=== PATIENT | female | born 1980 | race Asian ===

== ENCOUNTER 2019-06-27 17:03 | Emergency (ER) | payer MEDICAID ==
[2019-06-27 17:13] VITALS: BP 115/73
--- NOTE | 2019-06-27 17:36 | ED Physician Documentation ---
History of Present Illness - Stated complaint Stated Complaint: LT EAR INJURY - Chief complaint Chief Complaint: Trauma Hd/Nk - History obtained from History obtained from: Patient - History of Present Illness Timing: Today, How many hours ago (1) Pain level max: 6 Pain level now: 4 - Additonal information Additional information: L ear caught in car door. She states she sustained a laceration to the posterior aspect of the left ear. No loss of consciousness. No headache. No vomiting. Worse with movement and better with rest. Tetanus is up-to-date Review of Systems Constitutional: denies: Fever GI: denies: Vomiting : denies: Now EGA Neurologic: denies: Seizure, LOC PD PAST MEDICAL HISTORY - Past Medical History Past Medical History: No - Past Surgical History Past Surgical History: No - Allergies Allergies/Adverse Reactions: Allergies Allergy/AdvReac Type Severity Reaction Status Date / Time No Known Drug Allergies Allergy Verified 06/27/19 17:09 - Family History Family history: reports: Non contributory - Immunizations Immunizations: TDAP current <10years PD ED PE NORMAL - Vitals Vital signs reviewed: Yes - General General: Alert and oriented X 3, No acute distress, Well developed/nourished - HEENT HEENT: PERRL, Moist mucous membranes, Pharynx benign, Other (L ear - Posterior aspect of the ear, 2 cm linear laceration. Subcutaneous. Not into cartilage. Not through and through. Neurovascularly intact) - Neck Neck: Supple, no meningeal sign - Derm Derm: Warm and dry - Neuro Neuro: Alert and oriented X 3 - Psych Psych: Normal mood, Normal affect Results - Vitals Vitals: Vital Signs - 24 hr 06/27/19 17:09 Temperature 37 C Heart Rate 75 Respiratory 16 Rate Blood Pressure 115/73 O2 Saturation 100 Oxygen O2 Source Room air Procedures - Laceration (location) L ear Length in cm: 1.5 Wound type: Linear, Into subcut fat, Clean Neurovascular status: Sensory intact, Motor intact, Vascular intact Wound Preparation: Irrigated copiously NS Skin layer closure: Dermabond, Steri strips Other: Patient tolerated well, No complications, Neurovascular intact, Tetanus UTD Complexity: Simple PD MEDICAL DECISION MAKING - ED course Complexity details: considered differential, d/w patient ED course: Patient with a linear cut to the posterior aspect of the ear. Closed with Steri-Strips and Dermabond. Tolerated well. Tetanus is up-to-date. Cartilage is not involved. Warnings of infection and instructions on wound care given at bedside. Also counseled on how to minimize scarring. Patient counseled regarding signs and symptoms for which I believe and urgent re-evaluation would be necessary. Patient with good understanding of and agreement to plan and is comfortable going home at this time This document was made in part using voice recognition software. While efforts are made to proofread this document, sound alike and grammatical errors may occur. Departure - Departure Disposition: 01 Home, Self Care Clinical Impression: Laceration of ear Qualifiers: Encounter type: initial encounter Laterality: left Qualified Code(s): S01.312A - Laceration without foreign body of left ear, initial encounter Condition: Good Instructions: ED Laceration Facial Skin Glue Follow-Up: Ciara Arthur ARNP, METHODS SPECIALIST ENGINEER-C [Primary Care Provider] - Within 1 week (for wound check) Comments: Return if you worsen. Do not apply any ointment as this will dissolve the glue. The glue will fall off on its own.
== END 2019-06-27 17:55 | disposition home or self-care (01) ==
LOC: ED 17:03
DX: S01.312A Laceration without foreign body of left ear, initial encounter (principal); W23.0XXA Caught, crushed, jammed, or pinched between moving objects, initial encounter
CPT/HCPCS: 12011; 99282

== ENCOUNTER 2019-07-10 10:16 | Emergency (ER) | payer MEDICAID ==
[2019-07-10 11:02] LABS: HCG UR QUAL NEGATIVE
--- NOTE | 2019-07-10 12:11 | ED Physician Documentation ---
History of Present Illness - Stated complaint Stated Complaint: FEVER/BACK PX - Chief complaint Chief Complaint: Fever - History obtained from History obtained from: Patient - History of Present Illness Timing: Other (38-year-old otherwise healthy woman albeit with history of congenital hepatitis B presents with 4 days of illness consistent with body aches, fever, mild cough, runny nose. She has chronic right upper quadrant pain radiating to the back which is a little worse with this illness. Eating okay though. No sick contacts.) Review of Systems Constitutional: reports: Fever, Chills, Myalgias Nose: reports: Rhinorrhea / runny nose Throat: denies: Sore throat Cardiac: denies: Chest pain / pressure, Palpitations Respiratory: denies: Dyspnea PD PAST MEDICAL HISTORY - Past Surgical History Past Surgical History: No - Present Medications Home Medications: Ambulatory Orders Medication Instructions Recorded Confirmed Ibuprofen [Motrin] 800 mg PO Q8H PRN #30 tablet 07/10/19 - Allergies Allergies/Adverse Reactions: Allergies Allergy/AdvReac Type Severity Reaction Status Date / Time No Known Drug Allergies Allergy Verified 07/10/19 10:44 - Immunizations Immunizations: TDAP current <10years PD ED PE NORMAL - Vitals Vital signs reviewed: Yes - General General: Alert and oriented X 3, No acute distress - HEENT HEENT: PERRL (Anicteric), Pharynx benign - Neck Neck: Supple, no meningeal sign, No bony TTP - Cardiac Cardiac: RRR, No murmur - Respiratory Respiratory: No respiratory distress, Clear bilaterally - Abdomen Abdomen: Non tender - Derm Derm: Normal color, Warm and dry - Neuro Neuro: Alert and oriented X 3, Normal speech Results - Vitals Vitals: Vital Signs - 24 hr 07/10/19 10:41 Temperature 37 C Heart Rate 79 Respiratory 17 Rate Blood Pressure 105/54 L O2 Saturation 100 Oxygen O2 Source Room air - Labs Labs: Laboratory Tests 07/10/19 07/10/19 10:47 10:55 Ur Specific [place] 1.015 Urine HCG, Qual NEGATIVE Influenza A (Rapid) POSITIVE H Influenza B (Rapid) Negative PD MEDICAL DECISION MAKING - ED course ED course: She is not a candidate for Tamiflu given the time course of illness which has been 4 days. Conservative care was advised. Departure - Departure Disposition: 01 Home, Self Care Clinical Impression: Influenza A Condition: Good Record reviewed to determine appropriate education?: Yes Instructions: ED Flu Prescriptions: Ibuprofen [Motrin] 800 mg PO Q8H PRN #30 tablet PRN Reason: PAIN &/OR FEVER Comments: Return or follow-up with your doctor in 3 to 4 days if not improving. Return if worse. Follow-up with your doctor regardless for recheck.
--- NOTE | 2019-07-10 12:14 | XRAY Report ---
Reason: Chest pain Procedure Date: 07/10/2019 Accession Number: [id number] / [id number] Procedure: XR - Chest 2 View X-Ray CPT Code: 29240 Final Report FULL RESULT: EXAM: CHEST RADIOGRAPHY EXAM DATE: 07/10/2019 11:54 AM. CLINICAL HISTORY: Chest pain and cough for 4 days. COMPARISON: None. TECHNIQUE: 2 views. FINDINGS: Lungs/Pleura: No focal opacities evident. Small bilateral pleural effusions. No pneumothorax. Normal volumes. Mediastinum: Heart and mediastinal contours are unremarkable. Other: None. IMPRESSION: 1. Small bilateral pleural effusions. 2. Otherwise, no radiographic evidence of acute cardiopulmonary disease. RADIA
[2019-07-10 12:16] VITALS: BP 112/66
== END 2019-07-10 12:18 | disposition home or self-care (01) ==
LOC: ED 10:16
DX: J11.1 Influenza due to unidentified influenza virus with other respiratory manifestations (principal); J91.8 Pleural effusion in other conditions classified elsewhere
CPT/HCPCS: 71046; 81025; 87275; 87276; 99282; 99284

== ENCOUNTER 2020-01-22 14:51 | Outpatient (CLI) | payer MEDICAID | END 2020-01-22 23:59 | disposition home or self-care (01) | LOC: LAB.R 14:51 | PROVIDERS: ATTEND Physician Assistant Medical | DX: N39.0 Urinary tract infection, site not specified (principal) | CPT/HCPCS: 87077; 87086; 87181 ==

== ENCOUNTER 2020-02-04 08:00 | Outpatient (CLI) | payer MEDICAID ==
[2020-02-04 20:44] LABS: ALBUMIN 4.2 g/dL (3.2-5.5); ALBUMIN/GLOBULIN RATIO 1.2 (1.0-2.2); BILIRUBIN,TOTAL 0.9 mg/dL (0.2-1.0); CALCIUM 9.1 mg/dL (8.5-10.3); CREATININE 0.5 mg/dL (0.4-1.0); TOTAL PROTEIN 7.8 g/dL (6.7-8.2)
[2020-02-04 20:56] LABS: RHEUMATOID FACTOR NEGATIVE (Negative)
[2020-02-06 16:28] LABS: HEPATITIS B SURFACE ANTIGEN REACTIVE (NON-REACTIVE)
== END 2020-02-04 23:59 | disposition home or self-care (01) ==
LOC: LAB.S 08:00
PROVIDERS: ATTEND Physician Assistant
DX: B19.10 Unspecified viral hepatitis B without hepatic coma (principal); M19.90 Unspecified osteoarthritis, unspecified site; M25.561 Pain in right knee; M25.562 Pain in left knee
CPT/HCPCS: 36415; 80053; 86038; 86200; 86317; 86430; 86704; 87340

== ENCOUNTER 2020-05-25 16:54 | Outpatient (CLI) | payer MEDICAID | END 2020-05-25 23:59 | disposition critical access hospital (66) | LOC: EMS 16:54 | PROVIDERS: ATTEND Surgery | DX: R42 Dizziness and giddiness (principal) | CPT/HCPCS: A0425; A0429; A0999 ==

== ENCOUNTER 2020-05-25 17:34 | Emergency (ER) | payer MEDICAID ==
[2020-05-25] MEDS ORDERED: SODIUM CHLORIDE 0.9% 1,000 ML IV STA (18:12)
--- NOTE | 2020-05-25 19:09 | CT Report ---
PROCEDURE: HEAD WO INDICATIONS: ataxia TECHNIQUE: Noncontrast 4.5 mm thick angled axial sections acquired from the foramen magnum to the vertex. For r adiation dose reduction, the following was used: automated exposure control, adjustment of mA and/or kV according to patient size. COMPARISON: None. FINDINGS: Image quality: Excellent. CSF spaces: Basal cisterns are patent. No extra-axial fluid collections. Ventricles are normal in size and shape. Brain: No midline shift. No intracranial masses or hemorrhage. Rain-white matter interface is norm al. Skull and face: Calvarium and visualized facial bones are intact, without suspicious lesions. Sinuses: Visualized sinuses and mastoids are clear. IMPRESSION: No CT evidence of acute intracranial pathology. Reviewed by: Jose Jovel MD on 05/25/2020 6:07 PM RUST Approved by: Jose Jovel MD on 05/25/2020 6:07 PM RUST Station ID: [id number]
[2020-05-25 19:22] LABS: MUDS CUTOFF CONCENTRATIONS CUTOFF CONC BELOW:
--- NOTE | 2020-05-25 19:22 | ED Physician Documentation ---
History of Present Illness - Stated complaint Stated Complaint: DIZZY - Chief complaint Chief Complaint: Neuro - History obtained from History obtained from: Patient - Additonal information Additional information: Patient comes emergency department complaining of suddenly feeling dizzy and like she is "drunk". She states that symptoms started around 1600 after she ate a store-bought brownie from her work break room. She states she had been feeling fine throughout the day and had not taken any medications or any other substances. She states that she began to feel off balance and heavy headed. No nausea or vomiting. No chest pain or shortness of breath. She states that now she just feels very tired and still feels as though she is "drunk". Patient states nothing like this has ever happened to her before. She does note that when she moves her head in certain direction she gets a feeling of vertigo. No recent illness. No focal weakness. She does note that she has had a cold feeling in the back of her neck and a numb tingly feeling feeling in both her hands and her feet. Review of Systems Ten Systems: 10 systems reviewed and negative Constitutional: reports: Reviewed and negative Eyes: reports: Reviewed and negative Ears: reports: Reviewed and negative Nose: reports: Reviewed and negative Throat: reports: Reviewed and negative Cardiac: reports: Reviewed and negative Respiratory: reports: Reviewed and negative GI: reports: Reviewed and negative : reports: Reviewed and negative Skin: reports: Reviewed and negative Musculoskeletal: reports: Reviewed and negative Neurologic: reports: Numbness, Other (Dizziness). 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 - Present Medications Home Medications: Ambulatory Orders Medication Instructions Recorded Confirmed Ibuprofen [Motrin] 800 mg PO Q8H PRN #30 tablet 07/10/19 05/25/20 - Allergies Allergies/Adverse Reactions: Allergies Allergy/AdvReac Type Severity Reaction Status Date / Time No Known Drug Allergies Allergy Verified 05/25/20 17:55 - Social History Does the pt smoke?: No Smoking Status: Never smoker Does the pt drink ETOH?: Yes Does the pt have substance abuse?: No - Immunizations Immunizations: TDAP current <10years PD ED PE NORMAL - Vitals Vital signs reviewed: Yes - General General: Alert and oriented X 3, No acute distress - HEENT HEENT: Atraumatic, PERRL, EOMI, Moist mucous membranes - Neck Neck: Supple, no meningeal sign - Cardiac Cardiac: RRR, No murmur - Respiratory Respiratory: No respiratory distress, Clear bilaterally - Abdomen Abdomen: Soft, Non tender, Non distended - Derm Derm: Normal color, Warm and dry, No rash - Extremities Extremities: No deformity, No edema, No calf tenderness / cord - Neuro Neuro: Alert and oriented X 3, cigar machine feeder 2-12 intact, No motor deficit, No sensory deficit, Normal speech - Psych Psych: Normal mood, Normal affect Results - Vitals Vitals: Vital Signs - 24 hr 05/25/20 05/25/20 05/25/20 17:55 18:05 18:33 Temperature 37.1 C 37 C Heart Rate 71 74 80 Respiratory 18 17 17 Rate Blood Pressure 107/59 L 108/65 110/62 O2 Saturation 98 97 98 Oxygen O2 Source Room air PD MEDICAL DECISION MAKING - ED course Complexity details: considered differential, d/w patient ED course: The patient was started on 1 L bolus point and normal saline in the emergency department. She was fairly well-appearing upon arrival, but it was unclear exactly what had been the cause of her symptoms, and as such, she was worked up with labs, CT scan of the head, and urine drug screen. The results are pending at this time with exception of CT of the head, which was found to be unremarkable. Patient has been sent out to Dr. Lopez pending the results of work-up and final disposition.
[2020-05-25 19:26] LABS: BILIRUBIN,URINE NEGATIVE (NEGATIVE); GLUCOSE, URINE (UA) NEGATIVE (NEGATIVE); KETONES,URINE (UA) NEGATIVE (NEGATIVE); LEUKOCYTE ESTERASE, URINE TRACE (NEGATIVE); NITRITE,URINE NEGATIVE (NEGATIVE); OCCULT BLOOD,URINE NEGATIVE (NEGATIVE); PH,URINE 6.5 PH (5.0-7.5); PROTEIN,URINE NEGATIVE (NEGATIVE); UROBILINOGEN,URINE 0.2 (NORMAL) E.U./dL (NORMAL)
[2020-05-25 19:31] LABS: CLARITY,URINE CLEAR (CLEAR)
[2020-05-25 19:41] LABS: AMPHETAMINE SCREEN,URINE NEGATIVE (NEGATIVE); BENZODIAZEPINES SCREEN, URINE NEGATIVE (NEGATIVE); COCAINE SCREEN URINE NEGATIVE (NEGATIVE); METHADONE SCREEN, URINE NEGATIVE (NEGATIVE); METHAMPHETAMINES SCREEN, URINE NEGATIVE (NEGATIVE); OPIATE SCREEN, URINE NEGATIVE (NEGATIVE); OXYCODONE SCREEN, URINE NEGATIVE (NEGATIVE); PROPOXYPHENE SCREEN, URINE NEGATIVE (NEGATIVE); TRICYCLIC ANTIDEPRESSANT,URINE NEGATIVE (NEGATIVE)
[2020-05-25 19:51] LABS: BACTERIA,URINE Few /HPF (None Seen); EPITHELIAL CELLS,UR RARE Transitional /HPF (<= Few); RBC,URINE 0-5 /HPF (0-5); SQUAMOUS EPITHELIAL CELL,UR MOD Squamous (<= Few)
[2020-05-25 20:40] LABS: BASOPHILS % (AUTO) 0.3 %; EOSINOPHILS # (AUTO) 0.1 10^3/uL (0.0-0.7); EOSINOPHILS % (AUTO) 1.4 %; LYMPHOCYTES # (AUTO) 1.4 10^3/uL (1.5-3.5); LYMPHOCYTES % (AUTO) 21.7 %; MEAN CORPUSCULAR HEMOGLOBIN 30.3 pg (27.0-31.0); MEAN CORPUSCULAR HGB CONC 33.9 g/dL (32.0-36.0); MEAN CORPUSCULAR VOLUME 89.4 fL (81.0-99.0); MEAN PLATELET VOLUME 9.2 fL (7.9-10.8); MONOCYTES # (AUTO) 0.3 10^3/uL (0.0-1.0); MONOCYTES % (AUTO) 4.3 %; NEUTROPHILS # (AUTO) 4.6 10^3/uL (1.5-6.6); PLT - PLATELET COUNT 221 10^3/uL (130-450); RED BLOOD COUNT 3.96 10^6/uL (4.20-5.40); RED CELL DISTRIBUTION WIDTH 12.4 % (12.0-15.0); WHITE BLOOD COUNT 6.3 x10^3/uL (4.8-10.8)
[2020-05-25 20:52] LABS: ALBUMIN 3.6 g/dL (3.2-5.5); ALBUMIN/GLOBULIN RATIO 1.2 (1.0-2.2); ALKALINE PHOSPHATASE 44 IU/L (42-121); ALT ALANINE AMINOTRANSFERASE 28 IU/L (10-60); AST ASPARTATE AMINOTRANSFERASE 21 IU/L (10-42); BILIRUBIN,TOTAL 0.6 mg/dL (0.2-1.0); BUN - BLOOD UREA NITROGEN 14 mg/dL (6-20); CALCIUM 8.2 mg/dL (8.5-10.3); CARBON DIOXIDE - CO2 22 mmol/L (21-32); CHLORIDE 108 mmol/L (101-111); CREATININE 0.5 mg/dL (0.4-1.0); GLUCOSE 97 mg/dL (70-100); LIPASE 59 U/L (22-51); SODIUM 137 mmol/L (135-145); TOTAL PROTEIN 6.6 g/dL (6.7-8.2)
--- NOTE | 2020-05-25 21:33 | ED Physician Documentation ---
ED Addendum - Addendum Addendum: 05/25/20 21:31 States she is slowly feeling better but still feels "drunk". Her tests previously ordered by the outgoing physician where showing normal blood tests and head CT scan. Her urine was positive for cannabinoids. It is apparent that the brownies she had eaten earlier was likely made with cannabis. Her symptoms would correspond with that. I would anticipate improvement overnight. This point she can be discharged home and rest with her there. They are both comfortable with that plan. Diagnosis acute altered mental status Cannabis intoxication Discharge disposition the patient discharged home in stable condition
[2020-05-25 21:43] VITALS: BP 115/76
== END 2020-05-25 21:49 | disposition home or self-care (01) ==
LOC: EDUNIT# → ED 17:34
DX: F12.929 Cannabis use, unspecified with intoxication, unspecified (principal); R41.82 Altered mental status, unspecified; Y92.89 Other specified places as the place of occurrence of the external cause
CPT/HCPCS: 36415; 70450; 80053; 80306; 80320; 81001; 81003; 83690; 85025; 87086; 96360; 96361; 99284

== ENCOUNTER 2021-12-01 07:00 | Outpatient (CLI) | payer MEDICAID ==
--- NOTE | 2021-12-01 19:20 | XRAY Report ---
PROCEDURE: Ribs 2 View RT INDICATIONS: RIGHT SIDED RIB PAIN TECHNIQUE: 3 views of the right ribs were acquired. COMPARISON: CXR 07/10/2019. FINDINGS: Surgical changes and devices: None. Bones and chest wall: No fractures or dislocations. No suspicious bony lesions. Overlying soft tis sues appear unremarkable. Lungs and pleura: The visualized lung appears clear. No pleural effusions or pneumothorax are visib le. IMPRESSION: No displaced right-sided rib fracture. Reviewed by: Cornelius Young MD on 12/01/2021 7:18 PM PDT Approved by: Cornelius Young MD on 12/01/2021 7:18 PM PDT Station ID: [id number]
[2021-12-01 19:56] LABS: BASOPHILS % (AUTO) 0.4 %; EOSINOPHILS # (AUTO) 0.1 10^3/uL (0.0-0.7); EOSINOPHILS % (AUTO) 1.7 %; HCT - HEMATOCRIT 37.2 % (37.0-47.0); HGB - HEMOGLOBIN 12.6 g/dL (12.0-16.0); LYMPHOCYTES # (AUTO) 2.1 10^3/uL (1.5-3.5); LYMPHOCYTES % (AUTO) 29.6 %; MEAN CORPUSCULAR HEMOGLOBIN 29.9 pg (27.0-31.0); MEAN CORPUSCULAR HGB CONC 33.9 g/dL (32.0-36.0); MEAN CORPUSCULAR VOLUME 88.2 fL (81.0-99.0); MEAN PLATELET VOLUME 9.8 fL (7.9-10.8); MONOCYTES # (AUTO) 0.4 10^3/uL (0.0-1.0); MONOCYTES % (AUTO) 5.3 %; NEUTROPHILS # (AUTO) 4.5 10^3/uL (1.5-6.6); NEUTROPHILS % (AUTO) 62.6 %; PLT - PLATELET COUNT 243 10^3/uL (130-450); RED BLOOD COUNT 4.22 10^6/uL (4.20-5.40); RED CELL DISTRIBUTION WIDTH 12.6 % (12.0-15.0); WHITE BLOOD COUNT 7.2 x10^3/uL (4.8-10.8)
[2021-12-01 20:19] LABS: ALBUMIN 4.2 g/dL (3.2-5.5); ALBUMIN/GLOBULIN RATIO 1.2 (1.0-2.2); BILIRUBIN,TOTAL 0.5 mg/dL (0.2-1.0); CALCIUM 9.4 mg/dL (8.5-10.3); CREATININE 0.6 mg/dL (0.4-1.0); POTASSIUM 3.4 mmol/L (3.5-5.0); TOTAL PROTEIN 7.8 g/dL (6.7-8.2)
== END 2021-12-01 23:59 | disposition home or self-care (01) ==
LOC: DI.S 07:00
PROVIDERS: ATTEND Physician Assistant
DX: R07.81 Pleurodynia (principal); R10.11 Right upper quadrant pain; B18.1 Chronic viral hepatitis B without delta-agent
CPT/HCPCS: 36415; 80053; 83690; 85025

== ENCOUNTER 2022-01-03 15:12 | Emergency (ER) | payer MEDICAID ==
--- NOTE | 2022-01-03 16:13 | ED Physician Documentation ---
PD HPI BACK PAIN - Stated complaint Stated Complaint: LOW BACK PAIN - Chief complaint Chief Complaint: Back Pain - History obtained from History obtained from: Patient - History of Present Illness Timing - onset: Yesterday Timing - duration: Days (1) Timing - details: Gradual onset, Still present Location: Lower, Right Quality: Pain, Spasm, Aching Associated symptoms: No: Fever, Weakness, Numbness Worsened by: Movement, Palpation Contributing factors: Other (she mowed lawn yesterday with push mower and had onset of low back pain afterward which worsened overnight. Has had RUQ pain intermittently for the past month, worse after eating. However the back pain is new and just started yesterday.). No: Trauma Review of Systems Constitutional: denies: Fever, Chills Nose: denies: Rhinorrhea / runny nose, Congestion Throat: denies: Sore throat Respiratory: denies: Cough GI: reports: Abdominal Pain (RUQ intermittently for the past month, worse with eating.), Nausea. 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 - Present Medications Home Medications: Ambulatory Orders Medication Instructions Recorded Confirmed Aspirin [Aspirin EC] 243 mg PO DAILY 01/03/22 01/03/22 Dicyclomine [Bentyl] 10 mg PO BID PRN #30 cap 01/03/22 HYDROcod/ACETAM 5/325 [[place] 5/325] 1 ea PO Q6H PRN #18 tablet 01/03/22 Naproxen 250 mg PO TID 7 Days #20 tablet 01/03/22 - Allergies Allergies/Adverse Reactions: Allergies Allergy/AdvReac Type Severity Reaction Status Date / Time ivanna Allergy Itching Verified 01/03/22 15:34 - Social History Does the pt smoke?: No Smoking Status: Never smoker Does the pt drink ETOH?: Yes Does the pt have substance abuse?: No - Immunizations Immunizations: TDAP current <10years PD ED PE NORMAL - Vitals Vital signs reviewed: Yes - General General: Alert and oriented X 3, No acute distress, Well developed/nourished - Neck Neck: Supple, no meningeal sign, No adenopathy - Cardiac Cardiac: RRR, No murmur - Respiratory Respiratory: Clear bilaterally - Abdomen Abdomen: Normal bowel sounds, Soft, Non distended, No organomegaly, Other (some tender without guarding in RUQ. No percussion nor rebound tenderness. ) - Back Back: No CVA TTP, No spinal TTP (tender in lower lumbar muscles to the right without deformity. No rash nor sores. ) - Derm Derm: Normal color, Warm and dry - Extremities Extremities: No edema, No calf tenderness / cord - Neuro Neuro: Alert and oriented X 3, No motor deficit, No sensory deficit, Normal speech Results - Vitals Vitals: Oxygen O2 Source Room air - Labs Labs: Laboratory Tests 01/03/22 01/03/22 01/03/22 16:45 16:45 16:53 WBC 5.3 RBC 4.17 L Hgb 12.4 Hct 37.2 MCV 89.2 MCH 29.7 MCHC 33.3 RDW 12.4 Plt Count 205 MPV 9.0 Neut # (Auto) 3.3 Lymph # (Auto) 1.4 L [place] # (Auto) 0.4 Eos # (Auto) 0.1 Baso # (Auto) 0.0 Absolute Nucleated RBC 0.00 Nucleated RBC % 0.0 Sodium 137 Potassium 3.6 Chloride 104 Carbon Dioxide 27 Anion Gap 6.0 BUN 19 Creatinine 0.6 Estimated GFR (MDRD) 111 Glucose 110 H Calcium 8.7 Total Bilirubin 0.4 AST 25 ALT 33 Alkaline Phosphatase 48 Total Protein 7.2 Albumin 3.8 Globulin 3.4 Albumin/Globulin Ratio 1.1 Lipase 44 Urine Color YELLOW Urine Clarity CLEAR Urine pH 6.0 Ur Specific [place] 1.025 Urine Protein NEGATIVE Urine Glucose (UA) NEGATIVE Urine Ketones NEGATIVE Urine Occult Blood TRACE-INTA Urine Nitrite NEGATIVE Urine Bilirubin NEGATIVE Urine Urobilinogen 0.2 (NORMAL) Ur Leukocyte Esterase NEGATIVE Ur Microscopic Review NOT INDICATED Urine Culture Comments NOT INDICATED - Rads (name of study) abd/pelvic CT Radiology: Prelim report reviewed (collapsed gallbladder without other radiologic abnormality. ), See rad report PD MEDICAL DECISION MAKING - ED course Complexity details: considered differential (low back pain new seems muscular from mowing/activity, with worse on movement. RUQ pain sounds gallbladder like. Can get CT abd/pelvic to eval both areas rather than just U/S for upper. Consider vascular or other cause to encompass both. ), d/w patient Departure - Departure Disposition: 01 Home, Self Care Clinical Impression: RUQ abdominal pain Low back pain Qualifiers: Chronicity: acute Back pain laterality: right Sciatica presence: without sciatica Qualified Code(s): M54.50 - Low back pain, unspecified Condition: Stable Record reviewed to determine appropriate education?: Yes Instructions: ED Abdominal Pain Female Non-Specific Abdominal Pain, ED Sprain Strain Lumbar Follow-Up: Ling Waldron ARNP [Primary Care Provider] - Prescriptions: Dicyclomine [Bentyl] 10 mg PO BID PRN #30 cap PRN Reason: Abdominal Pain Naproxen 250 mg PO TID 7 Days #20 tablet HYDROcod/ACETAM 5/325 [[place] 5/325] 1 ea PO Q6H PRN #18 tablet PRN Reason: Pain Comments: Your CT scan does not show any acute problems. I presume your lower back pain is from muscular strain. I would treat it with heat/stretching/massage, and add anti-inflmmatories such as Naproxen three times daily with food. To that add Tylenol every 4-6 hours if needed or Hydrocodone/apap if needed for worse pain. Your upper abdominal pain right side you have been having may related to spasms of the gallbladder (without there being other obvious cause on your CT/tests). We can try dicyclomine antispasmodic twice daily for the next 7-10 days to see if lessens/improves the pain there. Follow up with your primary care. Consideration for a test that looks at over- spasming of the gallbladder (called HIDA scan), that would need to be arranged by your PCP. I transmitted your scripts to [facility]. Discharge Date/Time: 01/03/22 18:46
[2022-01-03] MEDS ORDERED: ACETAMINOPHEN 325 MG TABLET PO STA (16:37)
[2022-01-03] MEDS ORDERED: IBUPROFEN 600 MG TABLET PO STA (16:37)
[2022-01-03 16:50] LABS: BASOPHILS % (AUTO) 0.6 %; EOSINOPHILS # (AUTO) 0.1 10^3/uL (0.0-0.7); EOSINOPHILS % (AUTO) 2.3 %; HCT - HEMATOCRIT 37.2 % (37.0-47.0); HGB - HEMOGLOBIN 12.4 g/dL (12.0-16.0); LYMPHOCYTES # (AUTO) 1.4 10^3/uL (1.5-3.5); MEAN CORPUSCULAR HEMOGLOBIN 29.7 pg (27.0-31.0); MEAN CORPUSCULAR HGB CONC 33.3 g/dL (32.0-36.0); MEAN CORPUSCULAR VOLUME 89.2 fL (81.0-99.0); MONOCYTES # (AUTO) 0.4 10^3/uL (0.0-1.0); NEUTROPHILS # (AUTO) 3.3 10^3/uL (1.5-6.6); NEUTROPHILS % (AUTO) 62.9 %; PLT - PLATELET COUNT 205 10^3/uL (130-450); RED BLOOD COUNT 4.17 10^6/uL (4.20-5.40); RED CELL DISTRIBUTION WIDTH 12.4 % (12.0-15.0); WHITE BLOOD COUNT 5.3 x10^3/uL (4.8-10.8)
[2022-01-03 16:58] LABS: BILIRUBIN,URINE NEGATIVE (NEGATIVE); GLUCOSE, URINE (UA) NEGATIVE (NEGATIVE); KETONES,URINE (UA) NEGATIVE (NEGATIVE); LEUKOCYTE ESTERASE, URINE NEGATIVE (NEGATIVE); NITRITE,URINE NEGATIVE (NEGATIVE); OCCULT BLOOD,URINE TRACE-INTA (NEGATIVE); PROTEIN,URINE NEGATIVE (NEGATIVE); UROBILINOGEN,URINE 0.2 (NORMAL) E.U./dL (NORMAL)
[2022-01-03 17:00] LABS: CLARITY,URINE CLEAR (CLEAR)
[2022-01-03 17:04] LABS: ALBUMIN 3.8 g/dL (3.2-5.5); ALBUMIN/GLOBULIN RATIO 1.1 (1.0-2.2); BILIRUBIN,TOTAL 0.4 mg/dL (0.2-1.0); CALCIUM 8.7 mg/dL (8.5-10.3); CREATININE 0.6 mg/dL (0.4-1.0); POTASSIUM 3.6 mmol/L (3.5-5.0); TOTAL PROTEIN 7.2 g/dL (6.7-8.2)
--- NOTE | 2022-01-03 17:16 | CT Report ---
PROCEDURE: Abdomen/Pelvis WO INDICATIONS: low back/right back pain/RUQ abd TECHNIQUE: Noncontrast 5 mm thick sections acquired from the diaphragms to the symphysis. 5 mm coronal and sagi ttal reformats were then performed. For radiation dose reduction, the following was used: automated exposure control, adjustment of mA and/or kV according to patient size. COMPARISON: None. FINDINGS: Image quality: Excellent. ABDOMEN: Lung bases: Lung bases are clear. Heart size is normal. Solid organs: Liver and spleen are normal in size. Gallbladder is largely collapsed at the time of this study no inflammatory changes can be seen surrounding the gallbladder. Pancreas is normal in co ntours. No adrenal nodules. Kidneys are normal in size, without hydronephrosis or nephrolithiasis. Peritoneum and bowel: Unenhanced bowel loops demonstrate normal wall thickness and caliber. No free fluid or air. Nodes and vessels: No retroperitoneal or mesenteric adenopathy by size criteria. Aorta and inferior vena cava are normal in caliber. Miscellaneous: No ventral hernias. PELVIS: Genitourinary: Bladder wall thickness is normal. The uterus demonstrates an unremarkable appearance for age. No adnexal masses are seen. Miscellaneous: No inguinal hernias or adenopathy. Bones: No suspicious bony lesions. No vertebral body compression fractures. Focal L5-S1 degenerati ve change is seen. Milder degenerative changes are seen elsewhere. IMPRESSION: Collapsed gallbladder, without additional CT abnormality of the right upper quadrant. If it would be helpful for clinical management decision making, please consider a dedicated right upp er quadrant ultrasound for further evaluation. Incidental note is made of: Focal L5-S1 degenerative change Reviewed by: Babatunde Alegria MD on 01/03/2022 4:15 PM AKDT Approved by: Babatunde Alegria MD on 01/03/2022 4:15 PM AKDT Station ID: [id number]
[2022-01-03 18:46] VITALS: BP 118/72
--- OUTSIDE RECORDS SUMMARY | 2022-01-05 16:11 | EXTERNAL MEDICAL SUMMARY RPT | Continuity of Care Document ---
:1980 Author Organization [facility] Address [address] [place] [address] Phone Allergies No information. Encounters No information. Functional Status No information. Immunizations No information. Medications No information. Problems No information. Procedures date description facility +0000 COMPREHENSIVE METABOLIC PANEL [facility] [id number] Lipase Walk[facility] Anc[facility] Services [facility] [id number] CBC W/Diff/Plt Walk-In [facility] & [facility] +0000 COVID19 Testing Walk-In [facility] & [facility] Results/Labs No information. Social History date description facility +0000 Never smoker Walk[facility] [id number] Never smoker [facility] Vital Signs date measurement value units [id number] BMI BMI 26.01 kg/m2 [id number]+0000 BP_diastolic BP_diastolic 79 mm[H g] [id number]+0000 BP_systolic BP_systolic 125 mm[Hg] [id number]+0000 heart_rate heart_rate 84 /min [id number]+0000 height_metric height_metric 162.56 cm [id number]+0000 height_standard height_standard 64 in [id number]+0000 respiration_rate respiration_rate 16 /min [id number]+0000 temperature_metric temperature_metric 36.56 C [id number]+0000 temperature_standard temperature_standard 9 7.8 F [id number]+0000 weight_metric weight_metric 68.49 kg [id number]+0000 weight_standard weight_standard 151 lb
== END 2022-01-03 18:46 | disposition home or self-care (01) ==
LOC: ED 15:12
DX: M54.50 Low back pain, unspecified (principal); R10.11 Right upper quadrant pain
CPT/HCPCS: 36415; 74176; 80053; 81003; 83690; 85025; 99284; A9270; 81001; 87086

== ENCOUNTER 2022-03-28 14:27 | Outpatient (CLI) | payer MEDICAID ==
[2022-03-30 06:09] LABS: HEPATITIS B SURFACE AB QUANT <3.1 mIU/mL (Immunity>9.9)
== END 2022-03-28 14:28 | disposition home or self-care (01) ==
LOC: LAB.S 14:27
PROVIDERS: ATTEND Registered Nurse
DX: B18.1 Chronic viral hepatitis B without delta-agent (principal)
CPT/HCPCS: 36415; 86317; 86704

== ENCOUNTER 2023-01-03 19:07 | Outpatient (CLI) | payer MEDICAID ==
--- NOTE | 2023-01-04 09:46 | Ultrasound Report ---
PROCEDURE: OB First Trimester INDICATIONS: POSITIVE TEST OUTSIDE/PRIOR DATING DATA: Last menstrual period (LMP): 10/30/2022. LMP-based estimated date of delivery (JOSE): 08/06/2023. First dating scan (date and location): Today's exam. Estimated date of delivery (JOSE) from first dating scan: 08/05/2023. The below data below was generated using the ultrasound JOSE of 08/05/2023 TECHNIQUE: Real-time scanning was performed of the fetus and maternal pelvic organs, with image documentation. COMPARISON: None FINDINGS: Single intrauterine present. Embryo: Measures 2.6 cm, 9 weeks 3 days. Heart rate: 169 beats per minutes. Other: Perigestational fluid collection measuring 3.3 x 1.2 x 3.3 cm. Measurement variability in dating: +/- 4 weeks by LMP, +/- 7 days by mean sac diameter (use before 6 weeks gestation if crown-rump length not able to be measured), +/- 5 days by crown-rump length (6-12 weeks gestation). Maternal organs: Ovaries are within normal limits. IMPRESSION: Single living intrauterine at 9 weeks 3 days, JOSE of 08/05/2023. Perigestational fluid collection measuring 3.3 x 1.2 x 3.3 cm. Reviewed by: Moo Burton on 01/04/2023 9:44 AM PDT Approved by: Moo Burton on 01/04/2023 9:44 AM PDT Station ID: [id number]
== END 2023-01-03 19:08 | disposition home or self-care (01) ==
LOC: DI 19:07
PROVIDERS: ATTEND Obstetrics & Gynecology
DX: O09.529 Supervision of elderly multigravida, unspecified trimester (principal); O20.8 Other hemorrhage in early pregnancy; Z3A.09 9 weeks gestation of pregnancy; Z36.89 Encounter for other specified antenatal screening
CPT/HCPCS: 36415; 81001; 85025; 86592; 86762; 86787; 86803; 86850; 86900; 86901; 87086; 87340; 87389

== ENCOUNTER 2023-01-03 19:56 | Outpatient (CLI) | payer MEDICAID ==
[2023-01-03 21:17] LABS: BASOPHILS % (AUTO) 0.3 %; EOSINOPHILS # (AUTO) 0.1 10^3/uL (0.0-0.7); EOSINOPHILS % (AUTO) 1.2 %; HCT - HEMATOCRIT 38.9 % (37.0-47.0); HGB - HEMOGLOBIN 13.1 g/dL (12.0-16.0); LYMPHOCYTES # (AUTO) 1.7 10^3/uL (1.5-3.5); LYMPHOCYTES % (AUTO) 17.9 %; MEAN CORPUSCULAR HEMOGLOBIN 30.3 pg (27.0-31.0); MEAN CORPUSCULAR HGB CONC 33.7 g/dL (32.0-36.0); MEAN CORPUSCULAR VOLUME 89.8 fL (81.0-99.0); MEAN PLATELET VOLUME 9.4 fL (7.9-10.8); MONOCYTES # (AUTO) 0.5 10^3/uL (0.0-1.0); MONOCYTES % (AUTO) 5.6 %; NEUTROPHILS % (AUTO) 74.7 %; PLT - PLATELET COUNT 256 10^3/uL (130-450); RED BLOOD COUNT 4.33 10^6/uL (4.20-5.40); RED CELL DISTRIBUTION WIDTH 12.4 % (12.0-15.0); WHITE BLOOD COUNT 9.4 x10^3/uL (4.8-10.8)
[2023-01-03 21:44] LABS: BILIRUBIN,URINE NEGATIVE (NEGATIVE); GLUCOSE, URINE (UA) NEGATIVE (NEGATIVE); KETONES,URINE (UA) NEGATIVE (NEGATIVE); LEUKOCYTE ESTERASE, URINE NEGATIVE (NEGATIVE); NITRITE,URINE NEGATIVE (NEGATIVE); OCCULT BLOOD,URINE NEGATIVE (NEGATIVE); PROTEIN,URINE NEGATIVE (NEGATIVE); UROBILINOGEN,URINE 0.2 (NORMAL) E.U./dL (NORMAL)
[2023-01-03 21:49] LABS: CLARITY,URINE CLEAR (CLEAR)
[2023-01-03 22:00] LABS: RBC,URINE 0-5 /HPF (0-5); SQUAMOUS EPITHELIAL CELL,UR FEW Squamous (<= Few); WBC,URINE 0-3 /HPF (0-5)
[2023-01-03 22:01] LABS: BACTERIA,URINE Rare /HPF (None Seen)
[2023-01-05 02:08] LABS: HIV SCREEN 4TH GENERATION Non Reactive (Non Reactive)
[2023-01-05 03:10] LABS: HCV AB Non Reactive (Non Reactive)
[2023-01-05 07:10] LABS: HBsAG CONFIRMATION Positive (.); HBsAG SCREEN Confirm. indicated (Negative); RPR Non Reactive (Non Reactive)
[2023-01-05 08:11] LABS: VARICELLA-ZOSTER AB IGG <135 index (Immune >165)
== END 2023-01-03 19:57 | disposition home or self-care (01) ==
LOC: LAB 19:56
PROVIDERS: ATTEND Obstetrics & Gynecology
DX: O09.529 Supervision of elderly multigravida, unspecified trimester (principal); Z36.89 Encounter for other specified antenatal screening
CPT/HCPCS: 36415; 81001; 85025; 86592; 86762; 86787; 86803; 86850; 86900; 86901; 87086; 87340; 87389

== ENCOUNTER 2023-01-25 08:00 | Outpatient (CLI) | payer MEDICAID ==
[2023-01-25 21:40] LABS: CHLAMYDIA TRACHOMATIS DNA NEGATIVE (NEGATIVE); NEISSERIA GONORRHOEAE DNA NEGATIVE (NEGATIVE); TRICHOMONAS VAGINALIS DNA NEGATIVE (NEGATIVE)
== END 2023-01-25 23:58 | disposition home or self-care (01) ==
LOC: LAB.WC 08:00
PROVIDERS: ATTEND Obstetrics & Gynecology
DX: Z11.3 Encounter for screening for infections with a predominantly sexual mode of transmission (principal)
CPT/HCPCS: 87491; 87591; 87661

== ENCOUNTER 2023-01-26 14:21 | Outpatient (CLI) | payer MEDICAID ==
[2023-01-26 16:08] LABS: ALBUMIN 3.2 g/dL (3.2-5.5); ALBUMIN/GLOBULIN RATIO 0.9 (1.0-2.2); BILIRUBIN,TOTAL 0.2 mg/dL (0.2-1.0); CALCIUM 8.6 mg/dL (8.5-10.3); CREATININE 0.5 mg/dL (0.4-1.0); POTASSIUM 3.7 mmol/L (3.5-5.0); TOTAL PROTEIN 6.8 g/dL (6.7-8.2)
[2023-01-27 04:09] LABS: HEPATITIS B SURFACE AB QUANT <3.1 mIU/mL (Immunity>9.9); HEPATITIS BE ANTIGEN Negative (Negative)
[2023-01-29 10:08] LABS: HEPATITIS BE ANTIBODY Positive (Negative)
[2023-01-29 18:07] LABS: HBV IU/ML 30 IU/mL (.); HBV IU/ML LOG10 1.477 (.)
== END 2023-01-26 14:22 | disposition home or self-care (01) ==
LOC: LAB.S 14:21 → LAB 14:22
PROVIDERS: ATTEND Obstetrics & Gynecology
DX: O09.529 Supervision of elderly multigravida, unspecified trimester (principal); B19.10 Unspecified viral hepatitis B without hepatic coma; Z11.3 Encounter for screening for infections with a predominantly sexual mode of transmission
CPT/HCPCS: 36415; 80053; 86317; 86704; 86707; 87350; 87517

== ENCOUNTER 2023-03-14 10:29 | Outpatient (CLI) | payer MEDICAID ==
[2023-03-14 10:57] LABS: HCT - HEMATOCRIT 35.5 % (37.0-47.0); MEAN CORPUSCULAR HEMOGLOBIN 30.7 pg (27.0-31.0); MEAN CORPUSCULAR HGB CONC 33.8 g/dL (32.0-36.0); MEAN CORPUSCULAR VOLUME 90.8 fL (81.0-99.0); MEAN PLATELET VOLUME 8.9 fL (7.9-10.8); RED BLOOD COUNT 3.91 10^6/uL (4.20-5.40); RED CELL DISTRIBUTION WIDTH 12.6 % (12.0-15.0)
[2023-03-20 09:08] LABS: AFP VALUE 88.4 ng/mL (.)
[2023-03-21 14:08] LABS: AFP MOM 1.72 (.); GEST. AGE ON COLLECTION DATE 19.3 weeks (.); GESTAT. AGE METHOD EDD (.); INSULIN DEP DIABETES No (.); MATERNAL AGE AT EDD 41.9 yr (.); MULTIPLE GESTATION No (.); OPEN SPINA BIFIDA RISK 1 IN 1551 (.); RACE Other (.); TEST RESULTS *Screen Negative* (.); WEIGHT 159 lbs (.)
== END 2023-03-14 10:30 | disposition home or self-care (01) ==
LOC: LAB 10:29
PROVIDERS: ATTEND Obstetrics & Gynecology
DX: O09.529 Supervision of elderly multigravida, unspecified trimester (principal)
CPT/HCPCS: 36415; 82105; 85027

== ENCOUNTER 2023-03-26 15:05 | Outpatient (CLI) | payer MEDICAID ==
--- NOTE | 2023-03-27 15:31 | Ultrasound Report ---
PROCEDURE: OB 14+ Weeks INDICATIONS: SUPERVISION OF OUTSIDE/PRIOR DATING DATA: Last menstrual period (LMP): 10/30/2022. LMP-based estimated date of delivery (JOSE): 08/06/2023. First dating scan (date and location): 01/03/2023. Estimated date of delivery (JOSE) from first dating scan: 08/05/2023. The below data below was generated using the clinical JOSE of 08/06/2023 TECHNIQUE: Real-time scanning was performed of the fetus, with image documentation and biometric measurements. COMPARISON: OB ultrasound 02/02/2023 FINDINGS: General: A single living intrauterine gestation is present. Presentation: Vertex Placenta: Placental position is anterior, without previa. Amniotic fluid index: 13.1 cm, within normal limits for gestational age. heart rate: 131 beats per minute. Maternal cervical canal: 4.2 cm long; normal length is 2.5 cm or more. biometrics: Biparietal diameter: 5.1 cm 21 weeks 3 days Head circumference: 19.1 cm 21 weeks 2 days Abdominal circumference: 16.8 cm 21 weeks 6 days Femur length: 3.7 cm 21 weeks 5 days Estimated gestational age from initial scan: 21 weeks 0 days Composite gestational age from present scan: 21 weeks 4 days Estimated weight and percentile: 247 g 83rd percentile Measurement variability for biometric dating: +/- 10 days from 12-20 weeks gestation, +/- 2 weeks fro m 20-30 weeks gestation, +/- 3 weeks for 30 weeks gestation or later. Anatomic survey: Neuro: Ventricles are non-dilated at less than 10 mm. Cisterna magna is normal at 3-11 mm. Cerebel lum is normal in size and morphology. Nuchal skin fold: Normal at less than 6 mm between 14-20 weeks gestational age. Face: Nose and lips, facial profile are not well seen. Spine: No evidence for spina bifida. Heart: 4-chambered heart and ventricular outflow tracts are not well seen. Diaphragm: Diaphragm is intact. Stomach: Left-sided stomach is present. Kidneys: No hydronephrosis. Normal is less than 5 mm in 2nd trimester, less than 7 mm in 3rd trimester. Cord: 3-vessel cord has orthotopic insertion. Bladder: Normal in size. Extremities: All extremities are not identified. IMPRESSION: Single live intrauterine identified by ultrasound gestational age today 21 weeks 4 days. Facial structures, four-chamber heart/outflow tracts as well as extremities are not completely identi fied on current exam. Follow-up imaging is recommended for further evaluation. Reviewed by: Olya Baugh MD on 03/27/2023 3:30 PM PDT Approved by: Olya Baugh MD on 03/27/2023 3:30 PM PDT Station ID: [id number]
== END 2023-03-26 15:06 | disposition home or self-care (01) ==
LOC: DI 15:05
PROVIDERS: ATTEND Obstetrics & Gynecology
DX: O09.522 Supervision of elderly multigravida, second trimester (principal); Z3A.21 21 weeks gestation of pregnancy

== ENCOUNTER 2023-05-14 12:37 | Outpatient (CLI) | payer MEDICAID | END 2023-05-14 12:38 | disposition critical access hospital (66) | LOC: EMS 12:37 | DX: R10.12 Left upper quadrant pain (principal) | CPT/HCPCS: A0425; A0429 ==

== ENCOUNTER 2023-05-14 13:17 | Outpatient (CLI) | payer MEDICAID ==
[2023-05-14 13:37] VITALS: BP 114/59
[2023-05-14] MEDS ORDERED: guaiFENesin/DEXTROMETHORPHAN 10 ML UDC PO PRN (14:12)
--- NOTE | 2023-05-14 14:23 | PROVIDER PROGRESS NOTE ---
- HPI Chief Complaint: Pain, non-labor Current : Vital Signs Temperature 97.7 F 05/14/23 13:21 Heart Rate 108 H 05/14/23 13:21 Respiratory Rate 20 05/14/23 13:21 Blood Pressure 114/59 L 05/14/23 13:21 Temperature 97.7 F 05/14/23 13:21 Heart Rate 108 H 05/14/23 13:21 Respiratory Rate 20 05/14/23 13:21 Blood Pressure 114/59 L 05/14/23 13:21 O2 Saturation If not protocol: Oxygen Flow, liters/minute - Procedures OB Procedure Performed: NST Diagnosis/Indication for NST: Decreased movement - Plan Plan: Patient is a 42-year-old -0-0-2 at 28 weeks 0 days gestation presenting to triage for cough and left upper abdominal pain. She is been coughing for approximately 5 days and feels like she hurt her abdomen coughing. Pain is 8 out of 10 when coughing, but 3 out of 10 when at baseline. She has no sick contacts. No fever or chills. Took a home COVID test and was negative. Also had some decreased movement for several days. Now more baby is moving very well. She has good movement, no leaking, no vaginal bleeding. She denies headache, right upper quadrant pain, changes in vision. Past medical history Hepatitis B Anxiety Depression Past surgical history Appendectomy section Family history Father: Osteoarthritis Social history Denies tobacco, alcohol, drugs Labs: Negative respiratory pathogen panel. Physical Exam Constitutional: alert, no acute distress, well hydrated, well developed, well nourished, appropriate dress. Cardiovascular: Regular rate and rhythm. Respiratory: no respiratory distress. Abdomen: Gravid, nondistended, nontender, no guarding. Pain not reproducible on exam. Psych: affect and mood appropriate, normal interaction, good eye contact. NST: 130 bpm baseline, moderate variability, accelerations present, no decelerations. Reactive NST [place]: Quiescent Assessment and plan 42-year-old -0-0-2 at 28 weeks 0 days gestation with cough 1. Cough -Significant relief with dextromethorphan. We will send prescription to pharmacy to aid in coughing. Discussed likely course of viral pathogen with patient. No sick contacts. If she develops fever, chills, worsening symptoms, should return. 2. Abdominal pain -Directly related to coughing. Improved once she had antitussive 3. Decreased movement -Numerous movements upon arrival. Discussed that she may have decreased sensation due to her abdominal pain from coughing. Still may not be entirely consistent as she is barely 28 weeks.
[2023-05-14 14:39] LABS: B. PARAPERTUSSIS- RESP PCR PAN NOT DETECTED; B. PERTUSSIS- RESP PCR PANEL NOT DETECTED; C. PNEUMONIAE- RESP PCR PANEL NOT DETECTED; CORONAVIRUS 229E-RESP PCR NOT DETECTED; CORONAVIRUS HKU1-RESP PCR NOT DETECTED; CORONAVIRUS NL63-RESP PCR NOT DETECTED; CORONAVIRUS OC43-RESP PCR NOT DETECTED; HUMAN METAPNEUMOVIRUS NOT DETECTED; INFLUENZA A- RESP PCR PANEL NOT DETECTED; INFLUENZA B - RESP PCR PANEL NOT DETECTED; M. PNEUMONIAE- RESP PCR PANEL NOT DETECTED; PARAINFLUENZA VIRUS 1 NOT DETECTED; PARAINFLUENZA VIRUS 2 NOT DETECTED; PARAINFLUENZA VIRUS 3 NOT DETECTED; PARAINFLUENZA VIRUS 4 NOT DETECTED; RHINOVIRUS/ENTEROVIRUS NOT DETECTED; RSV- RESP PCR PANEL NOT DETECTED; SARS-CoV-2 -RESP PCR PANEL NOT DETECTED
== END 2023-05-14 17:15 | disposition home or self-care (01) ==
LOC: WFO 13:17 → FBP 13:18 → WFO 17:15
PROVIDERS: ATTEND Obstetrics & Gynecology
DX: O99.891 Other specified diseases and conditions complicating pregnancy (principal); R05.9 Cough, unspecified; R10.9 Unspecified abdominal pain; O36.8130 Decreased fetal movements, third trimester, not applicable or unspecified; Z3A.28 28 weeks gestation of pregnancy
CPT/HCPCS: 59025; 87633; 99213; A9270; 99215

== ENCOUNTER 2023-05-22 11:19 | Outpatient (CLI) | payer MEDICAID ==
[2023-05-22 15:06] LABS: HGB - HEMOGLOBIN 10.8 g/dL (12.0-16.0); MEAN CORPUSCULAR HGB CONC 32.7 g/dL (32.0-36.0); MEAN CORPUSCULAR VOLUME 88.5 fL (81.0-99.0); MEAN PLATELET VOLUME 10.3 fL (7.9-10.8); RED BLOOD COUNT 3.73 10^6/uL (4.20-5.40); RED CELL DISTRIBUTION WIDTH 12.9 % (12.0-15.0)
[2023-05-22 15:42] LABS: ALBUMIN 3.4 g/dL (3.2-5.5); ALBUMIN/GLOBULIN RATIO 1.1 (1.0-2.2); BILIRUBIN,TOTAL 0.3 mg/dL (0.2-1.0); CALCIUM 8.6 mg/dL (8.5-10.3); CREATININE 0.4 mg/dL (0.6-1.3); POTASSIUM 3.4 mmol/L (3.5-4.5); TOTAL PROTEIN 6.5 g/dL (6.4-8.9)
== END 2023-05-22 11:20 | disposition home or self-care (01) ==
LOC: LAB.S 11:19
PROVIDERS: ATTEND Obstetrics & Gynecology
DX: O98.419 Viral hepatitis complicating pregnancy, unspecified trimester (principal); B19.10 Unspecified viral hepatitis B without hepatic coma; O09.529 Supervision of elderly multigravida, unspecified trimester; Z36.89 Encounter for other specified antenatal screening
CPT/HCPCS: 36415; 80053; 82950; 85027; 86317

== ENCOUNTER 2023-05-30 08:34 | Outpatient (CLI) | payer MEDICAID | END 2023-05-30 08:35 | disposition home or self-care (01) | LOC: LAB 08:34 | PROVIDERS: ATTEND Obstetrics & Gynecology | DX: R73.02 Impaired glucose tolerance (oral) (principal) | CPT/HCPCS: 82951; 82952 ==

== ENCOUNTER 2023-05-31 08:47 | Outpatient (CLI) | payer MEDICAID ==
[2023-05-31 09:28] LABS: GTT GLUCOSE,FASTING 79 mg/dL (74-109)
== END 2023-05-31 08:48 | disposition home or self-care (01) ==
LOC: LAB 08:47
PROVIDERS: ATTEND Obstetrics & Gynecology
DX: R73.02 Impaired glucose tolerance (oral) (principal)
CPT/HCPCS: 36415; 82951; 82952

== ENCOUNTER 2023-06-01 19:30 | Outpatient (CLI) | payer MEDICAID | END 2023-06-01 19:31 | disposition critical access hospital (66) | LOC: EMS 19:30 | DX: O99.891 Other specified diseases and conditions complicating pregnancy (principal); R10.9 Unspecified abdominal pain; O21.9 Vomiting of pregnancy, unspecified; Z3A.00 Weeks of gestation of pregnancy not specified | CPT/HCPCS: A0425; A0429; A0999 ==

== ENCOUNTER 2023-06-01 20:08 | Outpatient (CLI) | payer MEDICAID ==
[2023-06-01] MEDS ORDERED: LACTATED RINGERS 1,000 ML IV ONE (20:49)
[2023-06-01 21:04] LABS: BASOPHILS % (AUTO) 0.1 %; EOSINOPHILS # (AUTO) 0.1 10^3/uL (0.0-0.7); HCT - HEMATOCRIT 31.3 % (37.0-47.0); HGB - HEMOGLOBIN 10.5 g/dL (12.0-16.0); LYMPHOCYTES # (AUTO) 0.8 10^3/uL (1.5-3.5); LYMPHOCYTES % (AUTO) 9.4 %; MEAN CORPUSCULAR HEMOGLOBIN 28.8 pg (27.0-31.0); MEAN CORPUSCULAR HGB CONC 33.5 g/dL (32.0-36.0); MEAN PLATELET VOLUME 10.2 fL (7.9-10.8); MONOCYTES # (AUTO) 0.3 10^3/uL (0.0-1.0); NEUTROPHILS # (AUTO) 7.2 10^3/uL (1.5-6.6); NEUTROPHILS % (AUTO) 85.9 %; PLT - PLATELET COUNT 193 10^3/uL (130-450); RED BLOOD COUNT 3.64 10^6/uL (4.20-5.40); WHITE BLOOD COUNT 8.4 x10^3/uL (4.8-10.8)
--- NOTE | 2023-06-01 21:11 | HISTORY & PHYSICAL EXAMINATION ---
Admit History - Visit Reason Visit Reason: Other (abdominal pain) - : 3 Parity: 2 Care: positive: [facility] Risk/History: positive: Other (chronic hepatitis B, advanced maternal age, history of previous section) Smoking Status: Never smoker - Mother's Labs Mother's Blood Type: positive: B Mother's RH: positive: Positive - Other Maternal History Other Maternal History: Patient is a 42-year-old -0-0-2 presenting at 30 weeks and 4 daysWith abdominal pain that started at approximately noon today. Patient states it feels different than contractions. It is worse when pressing on her abdomen. She denies nausea vomiting. Denies fever and chills. is complicated by chronic hepatitis B, advanced maternal age. G1: , full term, uncomplicated G2: , in [place] for indications Medical history: history of PTSD Medications: lexapro Surgical history: appendectomy Social: denies alcohol, denies tobacco - HPI Diagnosis/Indication for NST: Other (abdominal pain) - NST Procedure NST Procedure Start Time 13:20 Stop Time 13:40 30+4 abdominal pain in 130, moderate variability, +accels reactive NST Meds/Allgy - Home Medications Home Medications: Ambulatory Orders Medication Instructions Recorded Confirmed Aspirin [Aspirin EC] 243 mg PO DAILY 01/03/22 01/03/22 Dicyclomine [Bentyl] 10 mg PO BID PRN #30 cap 01/03/22 HYDROcod/ACETAM 5/325 [[place] 5/325] 1 ea PO Q6H PRN #18 tablet 01/03/22 Naproxen 250 mg PO TID 7 Days #20 tablet 01/03/22 Benzonatate [Tessalon] 100 mg PO TID PRN #15 cap 05/14/23 guaiFENesin/DEXTROMETHORPHAN 10 ml PO Q6H PRN #89 ml 05/14/23 [Robitussin Dm] - Allergies Allergies/Adverse Reactions: Allergies Allergy/AdvReac Type Severity Reaction Status Date / Time ivanna Allergy Itching Verified 01/03/22 15:34 Review of Systems - Constitutional Constitutional: denies: Fever, Chills - Cardiovascular Cariovascular: denies: Chest pain - Gastrointestinal Gastrointestinal: reports: Abdominal pain - Genitourinary Genitourinary: denies: Dysuria, Frequency, Hematuria - Musculoskeletal Musculoskeletal: denies: Back pain - All Other Systems All Other Systems: reports: Reviewed and negative Physical - Abdominal Exam Contraction Intensity: positive: Moderate - Monitoring Strip Review: positive: Category I - Presentation Presentation: positive: Breech - Vaginal Exam Membranes: positive: Membranes intact Dilation (in cm): 0 Effacement (%): 0 Station: positive: -3 - Speculum Exam Speculum Exam Performed: positive: Yes - Other Notes Labor Progress Note/Additional Text: Bedside ultrasound: breech presentation, anterior placenta, MVP 4.5 cm + movement Plan for Labor - Plan For Labor I expect patient to be DC'd or transferred within 96 hours.: Yes Plan for Labor: 42-year-old -0-0-2 presenting with painful contractions 1. contractions: -Magnesium sulfate for neuro protection -Betamethasone Transfer to outside facility 2. wellbeing -Reassuring -Breech presentation 3. Chronic hepatitis B
[2023-06-01 21:18] LABS: ALBUMIN 3.3 g/dL (3.2-5.5); ALBUMIN/GLOBULIN RATIO 1.2 (1.0-2.2); BILIRUBIN,TOTAL 0.3 mg/dL (0.2-1.0); CALCIUM 9.4 mg/dL (8.5-10.3); CREATININE 0.3 mg/dL (0.6-1.3); POTASSIUM 3.1 mmol/L (3.5-4.5)
[2023-06-01 21:24] LABS: BILIRUBIN,URINE NEGATIVE (NEGATIVE); GLUCOSE, URINE (UA) 250 mg/dL (NEGATIVE); KETONES,URINE (UA) TRACE mg/dL (NEGATIVE); LEUKOCYTE ESTERASE, URINE NEGATIVE (NEGATIVE); NITRITE,URINE NEGATIVE (NEGATIVE); OCCULT BLOOD,URINE NEGATIVE (NEGATIVE); PROTEIN,URINE NEGATIVE (NEGATIVE); UROBILINOGEN,URINE 0.2 (NORMAL) E.U./dL (NORMAL)
[2023-06-01 21:27] LABS: CLARITY,URINE HAZY (CLEAR)
[2023-06-01 21:34] LABS: BACTERIA,URINE None Seen /HPF (None Seen); RBC,URINE 0-5 /HPF (0-5); SQUAMOUS EPITHELIAL CELL,UR NONE SEEN (<= Few); WBC,URINE 0-3 /HPF (0-5)
[2023-06-01] MEDS ORDERED: CALCIUM GLUC 1,000MG/50ML-NACL 1,000 MG/50 ML BAG IV ONE (21:37)
[2023-06-01] MEDS ORDERED: MAGNESIUM SULFATE 4 GRAM 4 GM/50 ML BAG IV ONE (21:37)
[2023-06-01] MEDS ORDERED: MAGNESIUM SULFATE 2 GRAM 2 GM/50 ML BAG IV ONE (21:37)
[2023-06-01] MEDS ORDERED: NIFEdipine 10 MG CAPSULE PO PRN (21:37)
[2023-06-01 21:48] VITALS: BP 120/67
[2023-06-01] MEDS ORDERED: BETAMETHASONE 30 MG/5 ML VIAL IM SCH (22:00)
[2023-06-01] MEDS ORDERED: MAGNESIUM SULFATE IN WATER 20 GM/500 ML IV.SOLN IV SCH (22:00)
--- NOTE | 2023-06-01 22:38 | Ultrasound Report ---
REVISED: THIS REPORT WAS ORIGINALLY SIGNED ON 06/01/2023 @ 10:37 PM. THE EXAM CODE REVISED ON 07/11/2023. PROCEDURE: OB Bio w/Non Stress INDICATIONS: abdominal pain OUTSIDE/PRIOR DATING DATA: Last menstrual period (LMP): 10/30/2022. LMP-based estimated date of delivery (JOSE): 08/06/2023. The below data below was generated using the clinical JOSE of 08/06/2023 TECHNIQUE: Real-time scanning was performed of the fetus, with image documentation. Biophysical profile was also obtained. Endovaginal scanning: Not performed COMPARISON: None. FINDINGS: General: A single living intrauterine gestation is present. Presentation: Breech Placenta: Placental position is anterior, without previa. Amniotic fluid index: 30.1 cm, abnormal for gestational age. heart rate: 155 beats per minute. Maternal cervical canal: 5 cm long; normal length is 2.5 cm or more. Biophysical profile: Tone: 2 points. Movement: 2 points. Respiration: 2 points. Largest pocket of fluid: 2 points. Umbilical artery Doppler: Normal waveform. SD ratio ranges 2.2 through 3.2 IMPRESSION: Single living intrauterine at 30 weeks 4 days. BPP 8 of 8. Umbilical artery waveform is normal. Polyhydramnios, measuring 30.1 cm. Reviewed by: Moo Burton on 06/01/2023 10:37 PM PST Approved by: Moo Burton on 06/01/2023 10:37 PM PST Station ID: [id number]
[2023-06-01] MEDS ORDERED: LACTATED RINGERS 1,000 ML IV SCH (23:00)
== END 2023-06-02 00:10 | disposition short-term general hospital (02) ==
LOC: WFO 20:08 → FBP 20:09 → WFO 06-02 00:10
PROVIDERS: ATTEND Obstetrics & Gynecology Obstetrics
DX: O09.523 Supervision of elderly multigravida, third trimester (principal); O40.3XX0 Polyhydramnios, third trimester, not applicable or unspecified; O34.219 Maternal care for unspecified type scar from previous cesarean delivery; O32.1XX0 Maternal care for breech presentation, not applicable or unspecified; O98.413 Viral hepatitis complicating pregnancy, third trimester; B18.1 Chronic viral hepatitis B without delta-agent; Z3A.30 30 weeks gestation of pregnancy
CPT/HCPCS: 36415; 59025; 76819; 80053; 81001; 82731; 85025; 86850; 86900; 86901; 87797; 96361; 96365; 96366; 96372; 99215; A9270; J7120; 87081; 87086; J3475

== ENCOUNTER 2023-07-04 08:00 | Outpatient (CLI) | payer MEDICAID | END 2023-07-04 23:59 | disposition home or self-care (01) | LOC: LAB.WC 08:00 | PROVIDERS: ATTEND Obstetrics & Gynecology | DX: O09.523 Supervision of elderly multigravida, third trimester (principal) | CPT/HCPCS: 87797 ==

== ENCOUNTER 2023-07-12 10:02 | Outpatient (CLI) | payer MEDICAID ==
[2023-07-12 10:20] VITALS: BP 111/53
--- NOTE | 2023-07-12 16:59 | PROCEDURE REPORT ---
- HPI Diagnosis/Indication for NST: Other (AMA > 40yo) Current EDU 08/06/23 Gestation 36 Weeks and 3 Days 3 Para 2 Vital Signs Temperature 98.4 F 07/12/23 10:12 Heart Rate 82 07/12/23 10:12 Respiratory Rate 18 07/12/23 10:12 Blood Pressure 111/53 L 07/12/23 10:12 Temperature 98.4 F 07/12/23 10:12 Heart Rate 82 07/12/23 10:12 Respiratory Rate 18 07/12/23 10:12 Blood Pressure 111/53 L 07/12/23 10:12 O2 Saturation If not protocol: Oxygen Flow, liters/minute - NST Procedure NST Procedure Start Date 07/12/23 Start Time 10:12 Stop Time 10:37 Vibroacoustic Stimulation Used No Patient States Movement Yes - Results and Plan Findings/Impression: 125 mod kaylah + A cells no D cells reactive Plan: D/C home with precautions, continue current ANC plan.
== END 2023-07-12 10:45 | disposition home or self-care (01) ==
LOC: WFO 10:02 → FBP 10:04 → WFO 10:45
PROVIDERS: ATTEND Obstetrics & Gynecology
DX: O09.523 Supervision of elderly multigravida, third trimester (principal); Z3A.36 36 weeks gestation of pregnancy; O98.413 Viral hepatitis complicating pregnancy, third trimester; B19.10 Unspecified viral hepatitis B without hepatic coma
CPT/HCPCS: 59025; 87517

== ENCOUNTER 2023-07-12 10:46 | Outpatient (CLI) | payer MEDICAID ==
[2023-07-14 16:07] LABS: HBV IU/ML 90 IU/mL (.); HBV IU/ML LOG10 1.954 (.)
== END 2023-07-12 10:47 | disposition home or self-care (01) ==
LOC: LAB 10:46
PROVIDERS: ATTEND Obstetrics & Gynecology
DX: O09.529 Supervision of elderly multigravida, unspecified trimester (principal); O98.419 Viral hepatitis complicating pregnancy, unspecified trimester; B19.10 Unspecified viral hepatitis B without hepatic coma
CPT/HCPCS: 87517

== ENCOUNTER 2023-07-18 11:32 | Outpatient (CLI) | payer MEDICAID ==
[2023-07-18 11:54] VITALS: BP 116/70
--- NOTE | 2023-07-18 12:11 | PROCEDURE REPORT ---
- HPI Vital Signs Temperature 98.2 F 07/18/23 11:39 Heart Rate 83 07/18/23 11:39 Respiratory Rate 16 07/18/23 11:39 Blood Pressure 116/70 07/18/23 11:39 Temperature 98.2 F 07/18/23 11:39 Heart Rate 83 07/18/23 11:39 Respiratory Rate 16 07/18/23 11:39 Blood Pressure 116/70 07/18/23 11:39 O2 Saturation If not protocol: Oxygen Flow, liters/minute - NST Procedure NST Procedure Start Date 07/18/23 Start Time 11:50 Stop Time 12:27 Vibroacoustic Stimulation Used No Patient States Movement Yes - Results and Plan Plan: Patient is a 42-year-old -0-0-2 at 37 weeks 2 days gestation here for scheduled NST. NST Performed 07/18/2023 NST Read 07/18/2023 FHT: 120 bpm baseline, moderate variability, accelerations present, no decelerations. Reactive NST [place]: Rare Diagnosis 37 weeks gestation Advanced maternal age Continue with scheduled NST.
== END 2023-07-18 12:45 | disposition home or self-care (01) ==
LOC: WFO 11:32 → FBP 11:33 → WFO 12:45
PROVIDERS: ATTEND Obstetrics & Gynecology
DX: O09.523 Supervision of elderly multigravida, third trimester (principal); Z3A.37 37 weeks gestation of pregnancy
CPT/HCPCS: 59025

== ENCOUNTER 2023-07-21 09:44 | Outpatient (CLI) | payer MEDICAID ==
[2023-07-21 10:07] VITALS: BP 120/74
--- NOTE | 2023-07-21 17:12 | PROCEDURE REPORT ---
- HPI Diagnosis/Indication for NST: Gestational Diabetes Current EDU 08/06/23 Gestation 37 Weeks and 5 Days 3 Para 2 Vital Signs Temperature 98.2 F 07/21/23 10:01 Heart Rate 100 07/21/23 10:01 Respiratory Rate 16 07/21/23 10:01 Blood Pressure 120/74 07/21/23 10:01 Temperature 98.2 F 07/21/23 10:01 Heart Rate 100 07/21/23 10:01 Respiratory Rate 16 07/21/23 10:01 Blood Pressure 120/74 07/21/23 10:01 O2 Saturation If not protocol: Oxygen Flow, liters/minute - NST Procedure NST Procedure Start Date 07/21/23 Start Time 09:54 Stop Time 10:45 Vibroacoustic Stimulation Used No Patient States Movement Yes - Results and Plan Findings/Impression: 140 mod kaylah + A cells no D cells reactive Plan: OK to D/C home for scheduled ANC
== END 2023-07-21 10:45 | disposition home or self-care (01) ==
LOC: WFO 09:44 → FBP 09:47 → WFO 10:45
PROVIDERS: ATTEND Obstetrics & Gynecology
DX: O09.523 Supervision of elderly multigravida, third trimester (principal); Z3A.37 37 weeks gestation of pregnancy
CPT/HCPCS: 59025

== ENCOUNTER 2023-07-25 10:50 | Outpatient (CLI) | payer MEDICAID ==
[2023-07-25 11:38] VITALS: BP 112/76
--- NOTE | 2023-07-25 14:30 | PROCEDURE REPORT ---
- HPI Diagnosis/Indication for NST: Gestational Diabetes Current EDU 07/30/23 Gestation 39 Weeks and 2 Days 3 Para 2 Vital Signs Temperature 97.9 F 07/25/23 11:29 Heart Rate 88 07/25/23 11:29 Respiratory Rate 18 07/25/23 11:29 Blood Pressure 112/76 07/25/23 11:29 Temperature 97.9 F 07/25/23 11:33 Heart Rate 88 07/25/23 11:29 Respiratory Rate 18 07/25/23 11:29 Blood Pressure 112/76 07/25/23 11:29 O2 Saturation If not protocol: Oxygen Flow, liters/minute - NST Procedure NST Procedure Start Date 07/25/23 Start Time 11:20 Stop Time 11:40 Vibroacoustic Stimulation Used No Patient States Movement Yes - Results and Plan Findings/Impression: 120 mod kaylah + A cells no D cells reactive Plan: OK to D/C home continue with scheduled ANC precautions reviewed.
== END 2023-07-25 12:05 | disposition home or self-care (01) ==
LOC: WFO 10:50 → FBP 11:16 → WFO 12:05
PROVIDERS: ATTEND Obstetrics & Gynecology
DX: O09.523 Supervision of elderly multigravida, third trimester (principal); O24.419 Gestational diabetes mellitus in pregnancy, unspecified control; Z3A.39 39 weeks gestation of pregnancy
CPT/HCPCS: 59025

== ENCOUNTER 2023-07-30 05:31 | Inpatient (IN) | payer MEDICAID ==
[2023-07-30] MEDS ORDERED: ceFAZolin (2G) 2 GM in SODIUM CHLORIDE 0.9% MINIBAG 100 ML IV ONE (05:39)
[2023-07-30] MEDS ORDERED: ACETAMINOPHEN 500 MG TABLET PO ONE (05:39)
[2023-07-30] MEDS ORDERED: CITRIC ACID/SODIUM CITRATE 15 ML UDC PO ONE (05:39)
[2023-07-30 06:44] LABS: BASOPHILS % (AUTO) 0.3 %; EOSINOPHILS # (AUTO) 0.1 10^3/uL (0.0-0.7); EOSINOPHILS % (AUTO) 1.8 %; HCT - HEMATOCRIT 37.7 % (37.0-47.0); HGB - HEMOGLOBIN 12.6 g/dL (12.0-16.0); LYMPHOCYTES # (AUTO) 1.2 10^3/uL (1.5-3.5); LYMPHOCYTES % (AUTO) 20.1 %; MEAN CORPUSCULAR HEMOGLOBIN 28.8 pg (27.0-31.0); MEAN CORPUSCULAR HGB CONC 33.4 g/dL (32.0-36.0); MEAN CORPUSCULAR VOLUME 86.1 fL (81.0-99.0); MEAN PLATELET VOLUME 11.3 fL (7.9-10.8); MONOCYTES # (AUTO) 0.3 10^3/uL (0.0-1.0); MONOCYTES % (AUTO) 5.3 %; NEUTROPHILS # (AUTO) 4.4 10^3/uL (1.5-6.6); PLT - PLATELET COUNT 167 10^3/uL (130-450); RED BLOOD COUNT 4.38 10^6/uL (4.20-5.40); RED CELL DISTRIBUTION WIDTH 15.2 % (12.0-15.0); WHITE BLOOD COUNT 6.1 x10^3/uL (4.8-10.8)
[2023-07-30] MEDS ORDERED: ACETAMINOPHEN 325 MG TABLET PO ONE (07:00)
[2023-07-30] MEDS ORDERED: fentaNYL 100 MCG/2 ML VIAL ONE (07:25)
[2023-07-30] MEDS ORDERED: MORPHINE PF 5 MG/10 ML VIAL ONE (07:25)
[2023-07-30] MEDS ORDERED: PHENYLEPHRINE HCL 0.5 MG/5 ML AMPULE ONE ×2 (07:25→07:26)
[2023-07-30] MEDS ORDERED: METHYLERGONOVINE 0.2 MG/ML VIAL ONE (07:27)
[2023-07-30] MEDS ORDERED: miSOPROStoL 200 MCG TABLET ONE (07:27)
[2023-07-30] MEDS ORDERED: CARBOPROST TROMETHAMINE 250 MCG/ML AMP IM ONE (07:27)
[2023-07-30] MEDS ORDERED: OXYTOCIN/SODIUM CHLORIDE 500 ML IV ONE (07:34)
[2023-07-30] MEDS ORDERED: OXYTOCIN 10 UNIT/ML VIAL ONE (07:34)
[2023-07-30] MEDS ORDERED: SODIUM CHLORIDE 0.9% 10 ML VIAL IVP ONE (07:35)
[2023-07-30] MEDS ORDERED: fentaNYL 100 MCG/2 ML VIAL IVP PRN (07:49)
[2023-07-30] MEDS ORDERED: HYDROmorphone 0.5 MG/0.5 ML SYRINGE IVP PRN (07:49)
[2023-07-30] MEDS ORDERED: ATROPINE ABBOJECT 1 MG/10 ML SYRINGE IVP PRN (07:49)
[2023-07-30] MEDS ORDERED: ONDANSETRON 4 MG/2 ML VIAL IVP PRN ×2 (07:49→11:04)
[2023-07-30] MEDS ORDERED: NALOXONE 0.4 MG/ML VIAL IVP PRN ×3 (07:49→11:04)
[2023-07-30] MEDS ORDERED: MORPHINE 2 MG/ML CARPUJECT IVP PRN (07:49)
--- NOTE | 2023-07-30 07:49 | ANESTHESIA ---
Pre-Anesthesia VS, & Labs - Diagnosis previous c/s, desires sterilization - Procedure C/S with Gavin. salpingectomy Vital Signs: Temp Pulse Resp BP Pulse Ox O2 Flow Rate 36.7 C 93 20 111/77 94 07/30/23 06:30 07/30/23 06:30 07/30/23 06:30 07/30/23 06:30 07/30/23 05:47 Height: 5 ft 4 in Weight (kg): 79.832 kg Body Mass Index: 30.2 BMI Classification: Obese - NPO >8 hours - Is Patient ?: Yes - Lab Results Current Lab Results: Laboratory Tests 07/30/23 06:31: WBC 6.1, RBC 4.38, Hgb 12.6, Hct 37.7, MCV 86.1, MCH 28.8, MCHC 33.4, RDW 15.2 H, Plt Count 167, MPV 11.3 H, Neut # (Auto) 4.4, Lymph # (Auto) 1.2 L, [place] # (Auto) 0.3, Eos # (Auto) 0.1, Baso # (Auto) 0.0, Absolute Nucleated RBC 0.00, Nucleated RBC % 0.0 Lab results reviewed: Yes Fish Bones: 07/30/23 06:31 Home Medications and Allergies Active Medications Lactated Ringer's (Lr) 1,000 mls @ 125 mls/hr IV .Q8H RITA Aspirin [Aspirin EC] 243 mg PO DAILY 01/03/22 Allergies/Adverse Reactions: Allergies Allergy/AdvReac Type Severity Reaction Status Date / Time ivanna Allergy Itching Verified 01/03/22 15:34 lactose AdvReac Cramps Verified 07/30/23 07:26 Anes History & Medical History - Anesthetic History Anesthesia Complications: reports: No previous complications - Medical History Cardiovascular: reports: None Pulmonary: reports: None Gastrointestinal: reports: Hepatitis Urinary: reports: None Neuro: reports: None Musculoskeletal: reports: None Endocrine/Autoimmune: reports: None Blood Disorders: reports: None Skin: reports: None Smoking Status: Never smoker Psychosocial: reports: No issues indicated History of Cancer?: No - Surgical History General: reports: Appendectomy Gynecologic: reports: section Exam General: Alert, Oriented x3, Cooperative, No acute distress Dental: WNL Mouth Openin Fingerbreadth Neck Mobility: Normal Mallampati classification: II Thyromental Distance: 4-6 cm Mental/Cognitive Status: Alert/Oriented X3, Normal for patient Plan Anesthesia Type: Spinal Consent for Procedure(s) Verified and Reviewed: Yes Code Status: Attempt Resuscitation ASA classification: 2-Mild systemic disease Is this case an emergency?: No
[2023-07-30] MEDS: LACTATED RINGERS 1,000 ML IV SCH ×2 (07:52→17:46)
[2023-07-30] MEDS ORDERED: LACTATED RINGERS 1,000 ML IV SCH (08:00)
[2023-07-30] MEDS ORDERED: MORPHINE PF 5 MG/10 ML VIAL IT ONE (08:14)
[2023-07-30] MEDS ORDERED: fentaNYL 100 MCG/2 ML VIAL IT ONE (08:14)
[2023-07-30] MEDS ORDERED: GLYCOPYRROLATE 1 MG/5 ML VIAL ONE (08:18)
[2023-07-30] MEDS ORDERED: LACTATED RINGERS 500 ML IV ONE ×2 (08:29→12:42)
[2023-07-30] MEDS ORDERED: KETOROLAC 30 MG/ML VIAL ONE (08:58)
[2023-07-30] MEDS ORDERED: ONDANSETRON 4 MG/2 ML VIAL ONE (08:58)
[2023-07-30] MEDS ORDERED: oxyCODONE 5 MG TABLET PO PRN (10:23)
[2023-07-30] MEDS ORDERED: NIFEdipine 10 MG CAPSULE PO PRN (10:23)
[2023-07-30] MEDS ORDERED: hydrALAZINE INJ 20 MG/ML VIAL IVP PRN ×2 (10:23)
[2023-07-30] MEDS ORDERED: OXYTOCIN/SODIUM CHLORIDE 500 ML IV PRN (10:23)
[2023-07-30] MEDS ORDERED: LABETALOL 20 MG/4 ML SYRINGE IVP PRN ×3 (10:23)
[2023-07-30] MEDS ORDERED: NALBUPHINE 10 MG/ML AMP IVP PRN (11:04)
--- NOTE | 2023-07-30 11:35 | ANESTHESIA POST OP EVALUATION ---
Anesthesia Post Eval - Post Anesthesia Eval Vitals: Last Vital Signs Temp 36.5 C 07/30/23 11:08 Pulse 61 07/30/23 11:08 Resp 16 07/30/23 11:08 BP 124/76 07/30/23 11:08 Pulse Ox 98 07/30/23 11:08 O2 Flow Rate CV Function Including HR & BP: Stable Pain Control: Satisfactory Nausea & Vomiting: Negative Mental Status: Baseline Respiratory Status: Airway Patent Hydration Status: Satisfactory Anesthesia Complications: None
[2023-07-30] MEDS: ACETAMINOPHEN 500 MG TABLET PO SCH ×2 (11:59→20:14)
[2023-07-30] MEDS: KETOROLAC 30 MG/ML VIAL IVP SCH ×2 (12:00→17:46)
[2023-07-30] MEDS: DOCUSATE SODIUM 100 MG CAPSULE PO SCH (20:14)
--- NOTE | 2023-07-30 20:51 | OPERATIVE REPORT ---
Operative Report - General Admit Date: 07/30/23 Procedure Date: 07/30/23 Planned Procedure: repeat LTCS and bilateral salpingectomies Pre-Op Diagnosis: term , undesired future fertility Procedure Performed: as planned. Post Op Diagnosis: same - Procedure Note Primary Surgeon: Luly Chavarria MD Secondary Surgeon: AMADOU Meléndez. Anesthesia Provider: LING Timmons Anesthesia Technique: Spinal Pathology: none. IV Fluids (mL): 500 Estimated Blood Loss (mL): 300 Urine Output (mL): 75 Indications: term with 2 prior c sections. desires sterilization Findings: live female weighing 9 lb 4.5 oz. Apgars were 3/4/7. baby did not want to cry. uterus, tubes, ovaries appeared normal. placenta was large, like the baby. Complications: none - Other Other Information/Narrative: Patient here for repeat c section. desires sterilizaiton. papers signed more than 30 days ago. consent for procedure reviewed. signed previously. nothing new for her since last visit. brought to OR where spinal anesthesia is placed without complication. She supine with tilt to left. prepped and draped with catheter in bladder. SCDs on lower extremities. Ancef 2 grams given. time out done. anesthesia adequate. her daughter brought in to room. pfanensteil incision over prior scars, carried to fascia which is transected. muscles dissected off inferiorly and superiorly. The are quite . Perineum entered sharply. Walter retractor placed. Low transverse uterine incsion made with knife. Bag of water entered and fluid clear. incision extended. baby large, facing right. kemp forceps blade place gently under baby's head to guide her out. She delivered easily after that. We were drying and stimulating her, suctioned her. she was not crying, so cord was cut at about 30 seconds and she was handed off to Peds. Placenta was delivered with gentle tractions. uterus cleaned with a lap, contracted well. Oxytocin in IV. Uterine incision is closed with 0 Monocryl in running locked fashion. Second horizontal imbricating layer placed. hemostatic. Right fallopian tube grasped with [place] and elevated. Ligasure used to remove tube. similar done on left, but on this side there was a large vein right under tube that I could not separate. This was tied off with 2-0 vicryl suture proximally and distally. tube was then removed with ligasure. CAre was taken on both sides to preserve ovarian blood supply. Areas were hemostatic. Given her large rectus diastasis, muscles were brought together with 2 matress types stitches of 2-0 vicryl. Fascia was closed with running 0-Vicryl. Sub q was closed with 3-0 Monocryl. skin was closed with 4-0 monocryl. Dermabond was placed on skin. bandage put over that. Uterus was expressed and pateint was brought back to her room in stable condition. My phlebotomy lab assistant was present throughout the case and was needed for retraction, and to help deliver the infant.
[2023-07-31] MEDS: KETOROLAC 30 MG/ML VIAL IVP SCH (00:10)
[2023-07-31] MEDS: ACETAMINOPHEN 500 MG TABLET PO SCH ×3 (04:21→19:39)
[2023-07-31] MEDS ORDERED: KETOROLAC 30 MG/ML VIAL IVP SCH (06:00)
[2023-07-31] MEDS: LACTATED RINGERS 1,000 ML IV SCH (07:55)
[2023-07-31] MEDS: IBUPROFEN 600 MG TABLET PO SCH ×2 (11:25→19:40)
[2023-07-31] MEDS: DOCUSATE SODIUM 100 MG CAPSULE PO SCH (11:26)
--- NOTE | 2023-07-31 13:27 | HISTORY & PHYSICAL EXAMINATION ---
HPI - Admitted From Admitted from: OB - History Obtained From Records Reviewed: RN notes reviewed History obtained from: Patient Exam limitations: No limitations PMH/PSH - Past Medical History Cardiovascular: positive: None Respiratory: positive: None Neuro: positive: None Endocrine/Autoimmune: positive: None GI: positive: Hepatitis [employer] WORKER: positive: None : positive: None HEENT: positive: None Psych: positive: None Musculoskeletal: positive: None Derm: positive: None MRSA Hx?: No - Past Surgical History General: positive: Appendectomy /[employer] WORKER: positive: section Social & Family Hx - Social History Does the pt smoke?: No Smoking Status: Never smoker Does the pt drink ETOH?: Yes Does the pt have substance abuse?: No Meds/Allgy - Home Medications Home Medications: Ambulatory Orders Medication Instructions Recorded Confirmed Aspirin [Aspirin EC] 243 mg PO DAILY 01/03/22 01/03/22 Dicyclomine [Bentyl] 10 mg PO BID PRN #30 cap 01/03/22 HYDROcod/ACETAM 5/325 [[place] 5/325] 1 ea PO Q6H PRN #18 tablet 01/03/22 Naproxen 250 mg PO TID 7 Days #20 tablet 01/03/22 Benzonatate [Tessalon] 100 mg PO TID PRN #15 cap 05/14/23 guaiFENesin/DEXTROMETHORPHAN 10 ml PO Q6H PRN #89 ml 05/14/23 [Robitussin Dm] - Allergies Allergies/Adverse Reactions: Allergies Allergy/AdvReac Type Severity Reaction Status Date / Time ivanna Allergy Itching Verified 01/03/22 15:34 lactose AdvReac Cramps Verified 07/30/23 07:26 Results - Lab Results Fish Bones: 07/30/23 06:31 Other Lab Results: Lab Results x24hrs 07/30/23 Range/Units 07:00 Blood Type B POSITIVE Antibody Screen POSITIVE Antibody Identification Anti-Sofi GUSTAVO, IgG Specific Not Reportable GUSTAVO, Polyspecific NEGATIVE GUSTAVO, C3d Specific Not Reportable Crossmatch See Detail Impression/Plan - Problem List Problem List: term admitted for repeat c section and bilateral salpingectomies. Sure that she does not want more children. She will be discharged or transfered within 96 hours. full H&P printed from [employer].
[2023-08-01] MEDS: IBUPROFEN 600 MG TABLET PO SCH ×2 (01:34→08:07)
[2023-08-01] MEDS: ACETAMINOPHEN 500 MG TABLET PO SCH ×2 (03:45→13:45)
[2023-08-01] MEDS: DOCUSATE SODIUM 100 MG CAPSULE PO SCH (08:06)
[2023-08-01 13:32] VITALS: BP 124/81; O2SAT 96
--- NOTE | 2023-08-01 19:28 | PROVIDER PROGRESS NOTE ---
Subjective - Prog Note Date Prog Note Date: 07/31/23 Prog Note Time: 12:00 - Subjective Pt reports feeling: Improved Subjective: feeling pretty good. baby doing well. Objective - Vital Signs/Intake & Output Vital Signs: Vital Signs x48h Temp Pulse BP Pulse Ox 08/01/23 13:28 97.9 F 79 124/81 H 96 Intake & Output: Intake & Output 07/29/23 07/30/23 07/31/23 08/01/23 23:59 23:59 23:59 23:59 Intake Total 2860.417 0 Output Total 1475 1150 Balance 1385.417 -1150 - Objective Abdomen: positive: Non-tender (bandage dry) - Lab Results Fish Bones: 07/30/23 06:31
--- NOTE | 2023-08-01 19:31 | DISCHARGE SUMMARY ---
"Discharge Summary Admit Date: 07/30/23 Discharge Date: 08/01/23 Discharging Provider: Luly Chavarria MD Code Status: Attempt Resuscitation - DIAGNOSES Admission Diagnoses: term . desires sterility Discharge Diagnoses with Status of Each Condition: same, delivered and sterilized. - HPI History of Present Illness: patient at term. here for repeat c section and bilateral salpingectomies. - CONSULTS | PROCEDURES Procedures: repeat low transverse c section and bilateral salpingectomies. - HOSPITAL COURSE Hospital Course: patient was admitted for c section and salpingectomies which were performed without complication. baby girl was 9lb 4 oz. When the baby was born, she did not cry or breathe and needed resuscitation. after a short time she was fine bu t Apgars were 3/4/7. Baby remained in room with mom and they were discharged home together on ppd #2. - ALLERGIES Allergies/Adverse Reactions: Allergies Allergy/AdvReac Type Severity Reaction Status Date / Time ivanna Allergy Itching Verified 01/03/22 15:34 lactose AdvReac Cramps Verified 07/30/23 07:26 - MEDICATIONS Home Medications: Ambulatory Orders Medication Instructions Recorded Confirmed Aspirin [Aspirin EC] 243 mg PO DAILY 01/03/22 01/03/22 Dicyclomine [Bentyl] 10 mg PO BID PRN #30 cap 01/03/22 HYDROcod/ACETAM 5/325 [[place] 5/325] 1 ea PO Q6H PRN #18 tablet 01/03/22 Naproxen 250 mg PO TID 7 Days #20 tablet 01/03/22 Benzonatate [Tessalon] 100 mg PO TID PRN #15 cap 05/14/23 guaiFENesin/DEXTROMETHORPHAN 10 ml PO Q6H PRN #89 ml 05/14/23 [Robitussin Dm] Acetaminophen 650 mg PO Q4HR PRN #30 ea 08/01/23 Docusate Sodium 100Mg Capsule 100 - 200 mg PO BID PRN #60 cap 08/01/23 [Colace 100Mg Capsule] Ibuprofen [Motrin] 600 mg PO Q6H PRN #30 tab 08/01/23 oxyCODONE [Roxicodone] 2.5 - 5 mg PO Q4H PRN #24 tablet 08/01/23 - PHYSICAL EXAM AT DISCHARGE General Appearance: positive: No acute distress, Alert Respiratory: positive: No respiratory distress Abdomen: positive: Non-tender, Other (wound healing well. glue on incision) - LABS Result Diagrams: 07/30/23 06:31 - FOLLOW UP Follow Up: 1 week for pp check."
== END 2023-08-01 14:30 | disposition home or self-care (01) | DRG 784 ==
LOC: FBP 05:31
PROVIDERS: ADMIT Obstetrics & Gynecology; ATTEND Obstetrics & Gynecology
PROC: 0UT70ZZ Resection of Bilateral Fallopian Tubes, Open Approach (ICD-10-PCS; 2023-07-30)
PROC: 10D00Z1 Extraction of Products of Conception, Low, Open Approach (ICD-10-PCS; principal; 2023-07-30 08:15)
DX: O34.211 Maternal care for low transverse scar from previous cesarean delivery (principal); B18.1 Chronic viral hepatitis B without delta-agent; O98.42 Viral hepatitis complicating childbirth; O99.344 Other mental disorders complicating childbirth; F32.A Depression, unspecified; O99.824 Streptococcus B carrier state complicating childbirth; O99.214 Obesity complicating childbirth; O24.420 Gestational diabetes mellitus in childbirth, diet controlled; Z3A.39 39 weeks gestation of pregnancy; Z37.0 Single live birth; N85.8 Other specified noninflammatory disorders of uterus
CPT/HCPCS: 36415; 85025; 86850; 86870; 86880; 86900; 86901; 86922; A9270; J2274; J2372; J7120

== ENCOUNTER 2023-09-24 09:48 | Outpatient (CLI) | payer MEDICAID ==
[2023-09-24 10:26] LABS: GTT GLUCOSE,FASTING 90 mg/dL (74-109)
== END 2023-09-24 09:49 | disposition home or self-care (01) ==
LOC: LAB 09:48
PROVIDERS: ATTEND Nurse Practitioner
DX: O24.419 Gestational diabetes mellitus in pregnancy, unspecified control (principal)
CPT/HCPCS: 36415; 82951

== ENCOUNTER 2023-10-08 07:00 | Outpatient (CLI) | payer MEDICAID ==
--- NOTE | 2023-10-09 12:52 | XRAY Report ---
PROCEDURE: Toe(s) 2+V LT INDICATIONS: PAIN IN LEFT TOES TECHNIQUE: 3 views of the pinky toe(s) acquired. COMPARISON: None. FINDINGS: Bones: No acute fracture or subluxation identified. Questionable erosive changes seen in the distal p halanx of the fifth digit. Cannot exclude osteomyelitis. Soft tissues: Questionable soft tissue swelling of the fifth/pinky toe IMPRESSION: Questionable erosive changes with swelling of the fifth/pinky toe; cannot exclude osteomyelitis. Breezy elate with physical findings Reviewed by: Herbert Milner MD on 10/09/2023 12:50 PM PDT Approved by: Herbert Milner MD on 10/09/2023 12:50 PM PDT Station ID: [id number]
== END 2023-10-08 23:59 | disposition home or self-care (01) ==
LOC: DI.S 07:00
PROVIDERS: ATTEND Registered Nurse
DX: M79.675 Pain in left toe(s) (principal); R93.6 Abnormal findings on diagnostic imaging of limbs
CPT/HCPCS: 73660

== ENCOUNTER 2023-11-12 13:23 | Outpatient (CLI) | payer MEDICAID ==
--- NOTE | 2023-11-12 16:54 | XRAY Report ---
PROCEDURE: Hand 3+V LT INDICATIONS: HAND PAIN,LEFT TECHNIQUE: 3 views of the hand(s) acquired. COMPARISON: None. FINDINGS: Bones: No fractures or dislocations. No suspicious bony lesions. Soft tissues: No suspicious soft tissue calcifications or masses. IMPRESSION: No acute bony abnormality. Reviewed by: Moo Burton MD on 11/12/2023 4:27 PM PDT Approved by: Moo Burton MD on 11/12/2023 4:27 PM PDT Station ID: [id number]
== END 2023-11-12 13:24 | disposition home or self-care (01) ==
LOC: DI.S 13:23
PROVIDERS: ATTEND Physician Assistant Surgical
DX: M79.642 Pain in left hand (principal)